=== PATIENT | male | born 1955 | race Caucasian/White ===

== ENCOUNTER 2022-03-02 18:52 | Inpatient (IN) | payer MEDICARE, BC ==
--- NOTE | 2022-03-02 18:31 | CT ---
EXAMINATION TYPE: CT abdomen pelvis wo con CT DLP: 826.1 mGycm, Automated exposure control for dose reduction was used. DATE OF EXAM: 03/02/2022 5:43 PM COMPARISON: 02/17/2016 CLINICAL INDICATION:Male, 67 years old with history of R10.32 LLQ pain; LLQ pain Since Tuesday with Di arrhea TECHNIQUE: Axial CT of the abdomen and pelvis. Sagittal and coronal reformats were created on a autoGraph workstation. Contrast used: None Oral contrast used: without Oral Contrast FINDINGS: LOWER CHEST: Unremarkable ABDOMEN LIVER: Diffusely hypoattenuating parenchyma. GALLBLADDER AND BILE DUCTS: Unremarkable. PANCREAS: Unremarkable. SPLEEN: Unremarkable. ADRENAL GLANDS: Unremarkable. KIDNEYS AND URETERS: No evidence of hydronephrosis or renal calculus. The ureters are unremarkable. PELVIS BLADDER: Unremarkable REPRODUCTIVE: Unremarkable. ABDOMEN & PELVIS STOMACH AND BOWEL: Multiple loops of bowel are seen with small bowel feces which are dilated up to 3. 8 cm. There is relative nondistention of the colon and remainder of the small bowel. Transition point is felt to be in the anterior abdomen series 6 image 19. There is relatively smooth tapering at this junction. No obvious mass. No obvious wall thickening. PERITONEUM: No evidence of pneumoperitoneum or free fluid. VASCULATURE: No evidence of aortic aneurysm. MUSCULOSKELETAL: No acute osseous abnormalities, left hip arthroplasty. Hardware appears in appropria te position. LYMPH NODES: No gross evidence for lymphadenopathy. SOFT TISSUE/ABDOMINAL WALL: Unremarkable IMPRESSION: Dilation of small bowel predominantly jejunum with small bowel feces and nondistention of the distal ileum and colon concerning for small bowel obstruction. Transition point is felt to be an anterior ab domen series 6 image 18 with somewhat smooth tapering. Small bowel follow-through recommended to rule out obstruction.
[2022-03-02] MEDS ORDERED: SODIUM CHLORIDE 0.9% 1,000 ML IV STA (19:50)
--- NOTE | 2022-03-02 20:39 | ED ---
General Adult HPI - General Chief complaint: Abdominal Pain Stated complaint: abnormal CT-bowel obstruction Time Seen by Provider: 03/02/22 19:50 Source: patient Mode of arrival: ambulatory Limitations: no limitations - History of Present Illness Initial comments: Dictation was produced using [id number] dictation software. please excuse any grammatical, word or spelling errors. Chief Complaint: 67-year-old male presents with abnormal outpatient CT History of Present Illness: Is a 67-year-old male with past medical history of hernia repair and joint replacement. Patient states that he went to his primary care doctor's for poor appetite, abdominal pain for 4-5 days. He had a computed tomography scan ordered by mid-level provider's primary care physician's office. CT was abnormal showing signs of a small bowel obstruction. Sent to the emergency department. Patient states that he has not been eating or drinking. He hasn't been thrown up recently but has been passing gas and having bowel movements. The ROS documented in this emergency department record has been reviewed and confirmed by me. Those systems with pertinent positive or negative responses have been documented in the HPI. All other systems are other negative and/or noncontributory. PHYSICAL EXAM: General Impression: Alert and oriented x3, not in acute distress HEENT: Normocephalic atraumatic, extra-ocular movements intact, pupils equal and reactive to light bilaterally, mucous membranes moist. Cardiovascular: Heart regular rate and rhythm Chest: Able to complete full sentences, no retractions, no tachypnea Abdomen: Tympanitic to percussion, minimal palpatory tenderness diffusely. Musculoskeletal: Pulses present and equal in all extremities, no peripheral edema Motor: no focal deficits noted Neurological: CN II-XII grossly intact, no focal motor or sensory deficits noted Skin: Intact with no visualized rashes Psych: Normal affect and mood ED course: 67-year-old male presents emergency Department with abnormal outpatient CT. Outpatient CT showed small bowel obstruction. vital signs upon arrival are within acceptable limits. The patient does not appear to be in significant distress at the bedside. Laboratory evaluation obtained. CBC, coag panel, metabolic panel is unremarkable. EKG interpretation: Ventricular rate 73, sinus rhythm,. Interval 150, care is 85, QTc 4:30. No [place] prolongation, no QTC prolongation, no ST or T-wave changes noted. Overall, this EKG is unremarkable [facility] with consultation to general surgery. - Related Data Home Medications Medication Instructions Recorded Confirmed Aspirin [Adult Low Dose Aspirin EC] 81 mg PO DAILY 03/30/16 03/02/22 Latanoprost Ophth [Xalatan 0.005%] 1 drop LEFT EYE HS 03/30/16 03/02/22 Timolol 0.5% Ophth Soln [Timoptic 1 drop LEFT EYE BID 03/30/16 03/02/22 0.5% Ophth Soln] Allergies Allergy/AdvReac Type Severity Reaction Status Date / Time No Known Allergies Allergy Verified 03/02/22 21:29 Review of Systems ROS Statement: Those systems with pertinent positive or pertinent negative responses have been documented in the HPI. ROS Other: All systems not noted in ROS Statement are negative. Past Medical History History of Any Multi-Drug Resistant Organisms: None Reported Past Surgical History: Hernia Repair, Joint Replacement Past Psychological History: No Psychological Hx Reported Smoking Status: Never smoker Past Alcohol Use History: Daily Past Drug Use History: None Reported General Exam Limitations: no limitations Course Vital Signs 03/02/22 19:14 Temperature 98.9 F Pulse Rate 82 Respiratory 18 Rate Blood Pressure 155/97 O2 Sat by Pulse 97 Oximetry Medical Decision Making - Lab Data Result diagrams: 03/02/22 20:29 03/02/22 20:29 Lab Results 03/02/22 03/02/22 03/02/22 Range/Units 20:29 20:29 20:29 WBC 6.0 (3.8-10.6) k/uL RBC 4.38 (4.30-5.90) m/uL Hgb 14.6 (13.0-17.5) gm/dL Hct 42.1 (39.0-53.0) % MCV 96.1 (80.0-100.0) fL MCH 33.4 (25.0-35.0) pg MCHC 34.7 (31.0-37.0) g/dL RDW 12.3 (11.5-15.5) % Plt Count 301 (150-450) k/uL MPV 7.5 PT 10.9 (9.0-12.0) sec INR 1.0 (<1.2) APTT 23.2 (22.0-30.0) sec Sodium 138 (137-145) mmol/L Potassium 3.7 (3.5-5.1) mmol/L Chloride 100 (98-107) mmol/L Carbon Dioxide 22 (22-30) mmol/L Anion Gap 16 mmol/L BUN 25 H (9-20) mg/dL Creatinine 1.08 (0.66-1.25) mg/dL Est GFR (CKD-EPI)AfAm 82 (>60 ml/min/1.73 sqM) Est GFR (CKD-EPI)NonAf 71 (>60 ml/min/1.73 sqM) Glucose 100 H (74-99) mg/dL Calcium 8.9 (8.4-10.2) mg/dL Total Bilirubin 0.7 (0.2-1.3) mg/dL AST 51 (17-59) U/L ALT 61 H (4-49) U/L Alkaline Phosphatase 96 (38-126) U/L Total Protein 7.6 (6.3-8.2) g/dL Albumin 4.6 (3.5-5.0) g/dL Lipase 126 (23-300) U/L Disposition Clinical Impression: Small bowel obstruction Disposition: ADMITTED IP TO THIS [facility] Condition: Fair Decision Time: 22:22
[2022-03-02 20:51] LABS: Albumin 4.6 g/dL (3.5-5.0); Calcium 8.9 mg/dL (8.4-10.2); Potassium 3.7 mmol/L (3.5-5.1); Total Bilirubin 0.7 mg/dL (0.2-1.3); Total Protein 7.6 g/dL (6.3-8.2)
[2022-03-02 21:10] LABS: Partial Thromboplastin Time 23.2 sec (22.0-30.0); Prothrombin Time 10.9 sec (9.0-12.0)
[2022-03-02] MEDS ORDERED: NALOXONE 0.4 MG/ML 1 ML VIAL IV PRN (21:10)
[2022-03-02] MEDS ORDERED: ONDANSETRON 4 MG/2 ML VIAL IVP STA (21:11)
[2022-03-02 21:21] LABS: HCT 42.1 % (39.0-53.0); HGB 14.6 gm/dL (13.0-17.5); MCH 33.4 pg (25.0-35.0); MCHC 34.7 g/dL (31.0-37.0); MCV 96.1 fL (80.0-100.0); Mean Platelet Volume 7.5; Platelet Count 301 k/uL (150-450); RBC 4.38 m/uL (4.30-5.90); RDW 12.3 % (11.5-15.5)
[2022-03-02 22:24] LABS: Lymphocytes # (M) 2.22 k/uL (1.0-4.8); Monocytes # (M) 0.96 k/uL (0-1.0); Neutrophils # (M) 2.52 k/uL (1.3-7.7); Neutrophils % (M) 42 %; Nucleated Red Blood Cells 0 /100 WBC (0-0); Total Cells Counted 100
[2022-03-03] MEDS: SODIUM CHLORIDE 0.9% 1,000 ML IV SCH ×4 (04:03→20:08)
[2022-03-03] MEDS ORDERED: ONDANSETRON 4 MG/2 ML VIAL IVP PRN (04:28)
--- NOTE | 2022-03-03 04:40 | P.HPIM ---
History of Present Illness H&P Date: 03/02/22 Chief Complaint: abd pain 67 year old male presented from PCP office for abnormal CT abd findings suggestive of possible SBO patient reports GI symptoms since tuesday (4-5 days ago ) all started on his hunting trip after he ate some Anchovy that later appeared to be since 2015 . he started havig nausea and vomiting and not tolerating any PO intake . associated with severe diffused abd pain colicky in nature 02/08 in severity , he had no bowel movements initially on tuesday and tuesday, then started having diarrhea over past 2 days. denies any GI bleeding , but reports possible dark stools. he denies any fever, chills, URI symptoms , denies any changes in his urinary habits, denies any GI bleeding he has not tolerated PO intake since Tuesday . upon arrival , blood work unremarkable overall, CT abd showed possible SBO ve ileus none of his friends on the hunting trip who shared food with him are suffering any of his symptoms denies any smoking , illicit drugs or alcohol Review of Systems Pertinent positives as noted in HPI. All other systems were reviewed and are negative Past Medical History History of Any Multi-Drug Resistant Organisms: None Reported Past Surgical History: Hernia Repair, Joint Replacement Past Psychological History: No Psychological Hx Reported Smoking Status: Never smoker Past Alcohol Use History: Daily Past Drug Use History: None Reported - Past Family History Father Additional Family Medical History / Comment(s): father of bladder cancer Mother Additional Family Medical History / Comment(s): of influenza in her 50s Medications and Allergies Home Medications Medication Instructions Recorded Confirmed Type Aspirin [Adult Low Dose Aspirin EC] 81 mg PO DAILY 03/30/16 03/02/22 History Latanoprost Ophth [Xalatan 0.005%] 1 drop LEFT EYE HS 03/30/16 03/02/22 History Timolol 0.5% Ophth Soln [Timoptic 1 drop LEFT EYE BID 03/30/16 03/02/22 History 0.5% Ophth Soln] Allergies Allergy/AdvReac Type Severity Reaction Status Date / Time No Known Allergies Allergy Verified 03/02/22 21:29 Physical Exam Vitals: Vital Signs Temp Pulse Resp BP Pulse Ox 03/02/22 19:14 98.9 F 82 18 155/97 97 Intake and Output 03/02/22 03/02/2203/02/22 06:59 14:59 22:59 Other: Weight 93.44 kg Constitutional: No acute distress, conversant, pleasant Eyes: Anicteric sclerae, moist conjunctiva, Pupils equal round reactive to light ENMT: NC/AT Oropharynx clear, no erythema, or exudates Neck: Supple, no masses, or JVD No carotid bruits No thyromegaly Lungs: Clear to auscultation Clear to percussion Normal respiratory effort, no accessory muscle use Cardiovascular: Heart regular in rate and rhythm, No murmurs, gallops, or rubs No peripheral edema Abdominal: mild to mod distention , increase tympanic note of percussion Nontender, no guarding, rebound or rigidity Abdomen moving with respiration Normoactive bowel sounds No hepatomegaly, No splenomegaly No palpable mass No abdominal wall hernia noted Skin: Normal temperature, tone, texture, turgor No induration No subcutaneous nodules No rash, lesions No ulcers Extremities: No digital cyanosis No clubbing Pedal pulses intact and symmetrical Radial pulses intact and symmetrical No calf tenderness Psychiatric: Alert and oriented to person, place and time Appropriate affect fair judgement Neuro Muscles Strength 5/5 in all 4 extremities Sensation to light touch grossly present throughout Cranial nerves II-XII grossly intact Lymphatics: no palpable cervical or supraclavicular lymph nodes Results CBC & Chem 7: 03/02/22 20:29 03/02/22 20:29 Labs: Abnormal Lab Results - Last 24 Hours (Table) 03/02/22 Range/Units 20:29 BUN 25 H (9-20) mg/dL Glucose 100 H (74-99) mg/dL ALT 61 H (4-49) U/L Assessment and Plan Assessment: acute gastroenteritis , rule out SBO supportive care IVF hydration with normal saline zofran PRN for nausea vomiting CT abd reviewed possible SBO vs ileus general surgery consult monitor vital signs NPO pain control with opiates full code DVT PPX heparin sc tid
[2022-03-03] MEDS: HEPARIN SODIUM,PORCINE/PF 5,000 UNIT/0.5 ML SYRINGE SQ SCH ×3 (10:05→23:30)
[2022-03-03] MEDS: PANTOPRAZOLE 40 MG TABLET PO SCH (10:05)
[2022-03-03] MEDS: IOPAMIDOL CONTRAST (ORAL USE) VIAL PO PRN ×2 (10:49→11:33)
--- NOTE | 2022-03-03 12:50 | CT ---
EXAMINATION TYPE: CT abdomen pelvis wo con DATE OF EXAM: 03/03/2022 COMPARISON: 03/02/2022 HISTORY: Abdominal pain. CT DLP: 1136 mGycm Examination of the solid and hollow viscera is limited given the lack of contrast. FINDINGS: LUNG BASES: No evidence for nodule. No evidence for infiltrate. LIVER/GB: The gallbladder is unremarkable. No space-occupying hepatic lesion. PANCREAS: No pancreatic mass identified. No inflammatory process seen. SPLEEN: No evidence for splenomegaly. No intrasplenic lesions seen. ADRENALS: No adrenal nodules identified. No evidence for thickening. KIDNEYS: No evidence for renal mass. No nephrolithiasis. No hydronephrosis. BOWEL: Dilated small bowel measuring up to 4.2 cm with right lower quadrant transition noted. There i s no contrast seen within the mid to distal small bowel or the colon. I cannot exclude early complete small bowel obstruction. No evidence for free air or abscess. Lymph nodes: No evidence for adenopathy greater than 1 cm. Abdominal aorta: Atheromatous changes seen. No evidence for aneurysm. Genital organs: No significant abnormality. Other: No significant abnormality. IMPRESSION: 1. Suspect distal small bowel obstruction mid to distal small bowel with transition zone suggested wi thin the right lower quadrant. No contrast within the distal small bowel loops or within the colon.
--- NOTE | 2022-03-03 13:34 | P.GSCN ---
History of Present Illness Consult date: 03/03/22 History of present illness: CHIEF COMPLAINT: Abdominal pain HISTORY OF PRESENT ILLNESS: This is a 67-year-old male with a known history of umbilical hernia repair with mesh and appendectomy. Patient reports he started to have increased abdominal pain and distention on Tuesday. He reports that he also started to vomit. He took Pepto-Bismol on Tuesday without much improvement. He also had been having diarrhea. The diarrhea and flatus stopped on Tuesday. Patient reports that he started vomiting again. He reports today that he did have a formed stool with flatus. His abdominal distention and pain have improved. And he is no longer having vomiting or nausea. Patient reports decrease in appetite. He denies any fever chills sweats sweats. Denies any prior history of small bowel obstruction. He did have a computed tomography scan completed that had shown evidence of small bowel obstruction with a transition point in the anterior abdomen. Surgical service consulted for small bowel obstruction. He denies any cardiac history. Patient seen and examined with Dr. casanova PAST MEDICAL HISTORY: See below PAST SURGICAL HISTORY: See below MEDICATIONS: See below ALLERGIES: See below SOCIAL HISTORY: No illicit drug use. He does drink alcohol daily, 1-3 beers daily. REVIEW OF SYSTEMS: CONSTITUTIONAL: Denies fever or chills. HEENT: Denies blurred vision, vision changes, or eye pain. Denies hemoptysis CARDIOVASCULAR: Denies chest pain or pressure. RESPIRATORY: No shortness of breath. GASTROINTESTINAL: See HPI for pertinent findings HEMATOLOGIC: Denies bleeding disorders. GENITOURINARY: Denies any blood in urine or increased urinary frequency. SKIN: Denies pruitis. Denies rash. PHYSICAL EXAM: VITAL SIGNS: Reviewed GENERAL: Well-developed in no acute distress. HEENT: No sclera icterus. Extraocular movements grossly intact. Moist buccal mucosa. Head is atraumatic, normocephalic. No nasal drainage. ABDOMEN: Soft. Obese. Mildly distended nontender NEUROLOGIC: Alert and oriented. Cranial nerves II through XII grossly intact. LABORATORY DATA: WBC is 6.0 Hgb 14.6 platelets 301 INR 1.0 Sodium 138 potassium 3.7 BUN 25 creatinine 1.08 Total bili 0.7 AST 51 ALT 61 alk phos 96 lipase 126 IMAGING: Computed tomography scan abdomen and pelvis with IV contrast. Dilation of small bowel. Only jejunum with small bowel feces and not distention of the distal ileum and colon concerning for small bowel obstruction. Transition point is felt to be in the anterior abdomen with somewhat smooth tapering. ASSESSMENT: 1. Small bowel obstruction PLAN: -Computed tomography scan of abdomen and pelvis with oral contrast ordered for further evaluation of small bowel obstruction -Keep patient nothing by mouth until CAT scan results reviewed -Continue IV fluids -Continue supportive care -Encourage patient to ambulate Thank you for this consultation Physician [employer] note has been reviewed by physician. Signing provider agrees with the documented findings, assessment, and plan of care. Past Medical History History of Any Multi-Drug Resistant Organisms: None Reported Past Surgical History: Hernia Repair, Joint Replacement Additional Past Surgical History / Comment(s): Left hip replaced 2011, revision 2012; childhood tonsils and appendix Past Psychological History: No Psychological Hx Reported Smoking Status: Never smoker Past Alcohol Use History: Daily Past Drug Use History: None Reported - Past Family History Father Additional Family Medical History / Comment(s): father of bladder cancer Mother Additional Family Medical History / Comment(s): of influenza in her 50s Medications and Allergies Home Medications Medication Instructions Recorded Confirmed Type Aspirin [Adult Low Dose Aspirin EC] 81 mg PO DAILY 03/30/16 03/02/22 History Latanoprost Ophth [Xalatan 0.005%] 1 drop LEFT EYE HS 03/30/16 03/02/22 History Timolol 0.5% Ophth Soln [Timoptic 1 drop LEFT EYE BID 03/30/16 03/02/22 History 0.5% Ophth Soln] Allergies Allergy/AdvReac Type Severity Reaction Status Date / Time No Known Allergies Allergy Verified 03/02/22 21:29 Surgical - Exam Vital Signs Temp Pulse Resp BP Pulse Ox 98.9 F 82 18 155/97 97 03/02/22 19:14 03/02/22 19:14 03/02/22 19:14 03/02/22 19:14 03/02/22 19:14 Results - Labs 03/02/22 20:29 03/02/22 20:29 Abnormal Lab Results - Last 24 Hours (Table) 03/02/22 Range/Units 20:29 BUN 25 H (9-20) mg/dL Glucose 100 H (74-99) mg/dL ALT 61 H (4-49) U/L Diabetes panel 03/02/22 Range/Units 20:29 Sodium 138 (137-145) mmol/L Potassium 3.7 (3.5-5.1) mmol/L Chloride 100 (98-107) mmol/L Carbon Dioxide 22 (22-30) mmol/L BUN 25 H (9-20) mg/dL Creatinine 1.08 (0.66-1.25) mg/dL Glucose 100 H (74-99) mg/dL Calcium 8.9 (8.4-10.2) mg/dL AST 51 (17-59) U/L ALT 61 H (4-49) U/L Alkaline Phosphatase 96 (38-126) U/L Total Protein 7.6 (6.3-8.2) g/dL Albumin 4.6 (3.5-5.0) g/dL Calcium panel 03/02/22 Range/Units 20:29 Calcium 8.9 (8.4-10.2) mg/dL Albumin 4.6 (3.5-5.0) g/dL Pituitary panel 03/02/22 Range/Units 20:29 Sodium 138 (137-145) mmol/L Potassium 3.7 (3.5-5.1) mmol/L Chloride 100 (98-107) mmol/L Carbon Dioxide 22 (22-30) mmol/L BUN 25 H (9-20) mg/dL Creatinine 1.08 (0.66-1.25) mg/dL Glucose 100 H (74-99) mg/dL Calcium 8.9 (8.4-10.2) mg/dL Adrenal panel 03/02/22 Range/Units 20:29 Sodium 138 (137-145) mmol/L Potassium 3.7 (3.5-5.1) mmol/L Chloride 100 (98-107) mmol/L Carbon Dioxide 22 (22-30) mmol/L BUN 25 H (9-20) mg/dL Creatinine 1.08 (0.66-1.25) mg/dL Glucose 100 H (74-99) mg/dL Calcium 8.9 (8.4-10.2) mg/dL Total Bilirubin 0.7 (0.2-1.3) mg/dL AST 51 (17-59) U/L ALT 61 H (4-49) U/L Alkaline Phosphatase 96 (38-126) U/L Total Protein 7.6 (6.3-8.2) g/dL Albumin 4.6 (3.5-5.0) g/dL
--- NOTE | 2022-03-03 16:24 | P.PN ---
Subjective Progress Note Date: 03/03/22 Hospital course: Patient is a very pleasant 67-year-old male with a past medical history of umbilical hernia with mesh repair and appendectomy. He presented to the emergency department with a chief complaint of abdominal pain and distention accompanied by nausea and vomiting. He underwent full evaluation in the emergency department. CT abdomen and pelvis without contrast revealed dilation of small bowel predominantly to GEN him with small bowel cc an nondistention of the distal ileum and colon concerning for small bowel obstruction at the transition point. CBC, coags, and CMP completed showing no significant abnormalities. Patient was admitted under the services with consultation to general surgery. CT abdomen and pelvis with oral contrast for small bowel follow-through was then completed revealing distal small bowel obstruction mid to distal small bowel with transition zone suggested within the right lower quadrant Physical exam: Patient seen and fully evaluated at the bedside this morning. Patient reports continued diffuse abdominal pain/discomfort and bloating. He denies any further episodes of nausea or vomiting. Patient reports he has been passing flatus. Vital signs reviewed and stable. General: Nontoxic, no distress and appears stated age. Derm: Skin warm and dry, normal coloration for ethnicity. Head: Atraumatic, normocephalic and symmetric. Eyes: EOMs intact, no lid lag, and anicteric sclera Mouth: no lip lesions, mucus membranes moist Cardiovascular: regular rate and rhythm with normal S1S2, no murmur, positive posterior tibial pulses bilaterally, and cap refill < 2 seconds. Lungs: Respirations even, regular, and unlabored on room air. Lungs CTA bilaterally, no rhonchi, no rales, no wheezing, and no accessory muscle usage. Abdominal Taught distended with diffuse tenderness upon palpation. No guarding, no appreciable organomegaly Ext: ROM intact. No gross muscle atrophy, no edema, no contractures Neuro: Speech clear, face symmetrical and CN II-XII grossly intact with no noted focal neuro deficits Psych: Alert and oriented to person, place, time, and situation. Appropriate and pleasant affect. Assessment and Plan of Care: Small bowel obstruction -Gen. surgery following, appreciate further recommendations -Maintain NPO status, diet to be progressed only as recommended by general surgery team. -Continue with IV fluid hydration -Symptomatic care and pain management with Zofran as needed for nausea/vomiting and morphine as needed for pain/discomfort. -GI prophylaxis with Protonix -Encourage ambulation -Patient may require NG tube if nausea and vomiting returns CODE STATUS: Full code DVT prophylaxis: Heparin Discussed with: Patient and RN Anticipated discharge date: Clinical course to determine Anticipated discharge place: Home A total of 33 minutes was spent on the care of this complex patient more than 50% of the time was spent in counseling and care coordination. Objective - Vital Signs Vital signs: Vital Signs Temp 97.6 F 03/03/22 11: Pulse 65 03/03/22 11:22 Resp 16 03/03/22 11:22 BP 154/78 03/03/22 11:22 Pulse Ox 99 03/03/22 11:22 FiO2 Intake & Output 03/02/22 03/03/22 03/03/22 18:59 06:59 18:59 Weight 93.44 kg Other: # Voids 1 - Labs CBC & Chem 7: 03/02/22 20:29 03/02/22 20:29 Labs: Abnormal Lab Results - Last 24 Hours (Table) 03/02/22 Range/Units 20:29 BUN 25 H (9-20) mg/dL Glucose 100 H (74-99) mg/dL ALT 61 H (4-49) U/L
[2022-03-03] MEDS: LATANOPROST 0.005% OPHTH DROPS 2.5 ML BTL LEFT EYE SCH (21:00)
[2022-03-03] MEDS: TIMOLOL 0.5% OPHTH DROPS 5 ML BTL LEFT EYE SCH (21:00)
[2022-03-04] MEDS: SODIUM CHLORIDE 0.9% 1,000 ML IV SCH ×3 (03:42→17:15)
[2022-03-04] MEDS: PANTOPRAZOLE 40 MG TABLET PO SCH (08:17)
[2022-03-04] MEDS: TIMOLOL 0.5% OPHTH DROPS 5 ML BTL LEFT EYE SCH ×2 (08:18→21:00)
[2022-03-04] MEDS: HEPARIN SODIUM,PORCINE/PF 5,000 UNIT/0.5 ML SYRINGE SQ SCH ×2 (08:41→16:16)
[2022-03-04 09:12] LABS: HCT 35.8 % (39.6-50.0); HGB 11.9 g/dL (13.0-17.0); MCH 33.1 pg (27.0-32.0); MCHC 33.2 g/dL (32.0-37.0); MCV 99.7 fL (80.0-97.0); Mean Platelet Volume 8.8 fL (9.5-12.2); NRBC Per 100 WBC 0 /100 WBCS (0.0-0.0); Platelet Count 259 X 10*3/uL (140-440); RBC 3.59 X 10*6/uL (4.40-5.60); RDW 11.9 % (11.5-14.5); WBC 6.97 X 10*3/uL (4.50-10.00)
[2022-03-04 09:18] LABS: African American GFR (CKD) 96.5 (60.0-200.0); Albumin 3.7 g/dL (3.8-4.9); Albumin/Globulin Ratio 1.61 (1.60-3.17); Anion Gap 11.8 mmol/L (10.00-18.00); BUN/Creat Ratio 12.03 Ratio (12.00-20.00); Blood Urea Nitrogen 11.4 mg/dL (9.0-27.0); Calcium 8.4 mg/dL (8.7-10.3); Carbon Dioxide 22.1 mmol/L (20.0-27.5); Globulin 2.3 g/dL (1.6-3.3); Magnesium 2.1 mg/dL (1.5-2.4); Non-African American GFR(CKD) 83.3 (60.0-200.0); Potassium 3.9 mmol/L (3.5-5.5); Total Bilirubin 0.3 mg/dL (0.30-1.20)
--- NOTE | 2022-03-04 10:23 | P.PN ---
Subjective Progress Note Date: 03/04/22 Hospital course: Patient is a very pleasant 67-year-old male with a past medical history of umbilical hernia with mesh repair and appendectomy. He presented to the emergency department with a chief complaint of abdominal pain and distention accompanied by nausea and vomiting. He underwent full evaluation in the emergency department. CT abdomen and pelvis without contrast revealed dilation of small bowel predominantly to GEN him with small bowel cc an nondistention of the distal ileum and colon concerning for small bowel obstruction at the transition point. CBC, coags, and CMP completed showing no significant abnormalities. Patient was admitted under the services with consultation to general surgery. CT abdomen and pelvis with oral contrast for small bowel follow-through was then completed revealing distal small bowel obstruction mid to distal small bowel with transition zone suggested within the right lower quadrant Physical examination: Patient seen and fully evaluated at bedside this morning. Patient appears to be doing well. Patient reports passing a lot of flatus and states he has had for small bowel episodes of diarrhea overnight. Patient reports improvement of abdominal pain but states he remains feeling very distended and bloated throughout entire abdomen and very "gassy". Patient denies any episodes of nausea or vomiting or any other complaints at this time. We will obtain an abdominal x-ray to follow up on progression of small bowel obstruction, general surgery following. Vital signs reviewed and stable. General: Nontoxic, no distress and appears stated age. Derm: Skin warm and dry, normal coloration for ethnicity. Head: Atraumatic, normocephalic and symmetric. Eyes: EOMs intact, no lid lag, and anicteric sclera Mouth: no lip lesions, mucus membranes moist Cardiovascular: regular rate and rhythm with normal S1S2, no murmur, positive posterior tibial pulses bilaterally, and cap refill < 2 seconds. Lungs: Respirations even, regular, and unlabored on room air. Lungs CTA bilaterally, no rhonchi, no rales, no wheezing, and no accessory muscle usage. Abdominal Taught distended with diffuse tenderness upon palpation. No guarding, no appreciable organomegaly Ext: ROM intact. No gross muscle atrophy, no edema, no contractures Neuro: Speech clear, face symmetrical and CN II-XII grossly intact with no noted focal neuro deficits Psych: Alert and oriented to person, place, time, and situation. Appropriate and pleasant affect. Assessment and Plan of Care: Small bowel obstruction -Gen. surgery following, appreciate further recommendations -Maintain NPO status, diet to be progressed only as recommended by general surg marisabel team. -Continue with IV fluid hydration -Symptomatic care and pain management with Zofran as needed for nausea/vomiting and morphine as needed for pain/discomfort. -GI prophylaxis with Protonix -Encourage ambulation -Patient may require NG tube if nausea and vomiting returns -X-ray abdomen to follow up on progression of SBO CODE STATUS: Full code DVT prophylaxis: Heparin Discussed with: Patient and RN Anticipated discharge date: Clinical course to determine Anticipated discharge place: Home A total of 31 minutes was spent on the care of this complex patient more than 50% of the time was spent in counseling and care coordination. I reviewed the documentation as provided by the NOA above, who is the original author of this note. I agree with the documented assessment and plan, with the following changes: none Objective - Vital Signs Vital signs: Vital Signs Temp 97.9 F 03/04/22 03:37 Pulse 61 03/04/22 03:37 Resp 16 03/04/22 03:37 BP 134/77 03/04/22 03:37 Pulse Ox 98 03/04/22 03:37 FiO2 Intake & Output 03/03/22 03/04/22 03/04/22 18:59 06:59 18:59 Intake Total 1200 1500 Balance 1200 1500 Intake: Intake, IV Titration 1200 1500 Amount Sodium Chloride 0.9% 1, 1200 1500 000 ml @ 130 mls/hr IV . Q7H42M [facility] Rx#:[id number] Other: Voiding Method Toilet # Voids 3 # Bowel Movements 2 - Labs CBC & Chem 7: 03/05/22 09:11 03/05/22 09:11
--- NOTE | 2022-03-04 10:45 | XR ---
EXAMINATION TYPE: XR abdomen 2V DATE OF EXAM: 03/04/2022 CLINICAL DATA: 67-year-old male follow-up small bowel obstruction, [facility] COMPARISON: CT 03/03/2022 FINDINGS: Oral contrast has progressed throughout the collapsed colon distally to the rectum. Persist ent dilated small bowel loops in the left side of the abdomen measuring up to 4.4 cm. This is in comp arison to 4.8 cm on the prior CT. No evidence for free intraperitoneal air. Pelvic phleboliths. Parti ally visualized left total hip arthroplasty. Moderate degenerative change right hip. IMPRESSION: 1. Oral contrast has progressed into the colon. 2. The colon remains collapsed and there are persistent dilated small bowel loops in the left side of the abdomen measuring up to 4.4 cm. This is slightly improved compared to 4.[address] Residu al incomplete small bowel obstruction not excluded at this time.
[2022-03-04] MEDS ORDERED: IV FLUID CONTINUATION 900 ML IV ONE (12:00)
[2022-03-04] MEDS ORDERED: LACTATED RINGERS 1,000 ML IV ONE ×3 (12:30→15:27)
[2022-03-04] MEDS ORDERED: LIDOCAINE 1% (10MG/ML) FOR IV START INTRADERMA ONE (12:30)
[2022-03-04] MEDS ORDERED: DEXAMETHASONE SOD PHOSPHATE 4 MG/ML 1 ML VIAL IV ONE (12:30)
[2022-03-04] MEDS ORDERED: ONDANSETRON 4 MG/2 ML VIAL IVP ONE (12:30)
--- NOTE | 2022-03-04 12:32 | P.PN ---
Subjective Progress Note Date: 03/04/22 CHIEF COMPLAINT: Small bowel obstruction HISTORY OF PRESENT ILLNESS: Patient reports feeling still distended he is having some mid abdominal pain. He is passing a small amount of flatus and having liquidy stools. Denies any nausea or vomiting. Computed tomography scan abdomen and pelvis with oral contrast suspected distal small bowel obstruction mid to distal small bowel with transition zone suggested within the right lower quadrant. No contrast within the distal small bowel loops or within the colon. Medicine service did order an abdominal x-ray which reported oral Contrast has progressed into the colon. The colon remains collapsed and there are persistent dilated small bowel loops in the left side of the abdomen measuring up to 4.4 cm. This is slightly improved to 4.[address]. Residual incomplete small bowel obstruction not excluded at this time. Imaging results and exam findings discussed with Dr. casanova. Patient was seen and examined by Dr. casanova PHYSICAL EXAM: VITAL SIGNS: Reviewed. GENERAL: Well-developed in no acute distress. HEENT: No sclera icterus. Extraocular movements grossly intact. Moist buccal mucosa. Head is atraumatic, normocephalic. ABDOMEN: Distended. Tenderness with palpation mid abdomen NEUROLOGIC: Alert and oriented. Cranial nerves II through XII grossly intact. ASSESSMENT: 1. Small bowel obstruction PLAN: -Patient scheduled for exploratory laparotomy with lysis of adhesions today with Dr. casanova -Keep patient nothing by mouth Physician Trackwalker note has been reviewed by physician. Signing provider agrees with the documented findings, assessment, and plan of care. Objective - Vital Signs Vital signs: Vital Signs Temp 98.1 F 03/04/22 09:30 Pulse 55 L 03/04/22 09:30 Resp 18 03/04/22 09:30 BP 126/72 03/04/22 09:30 Pulse Ox 98 03/04/22 09:30 FiO2 Intake & Output 03/03/22 03/04/22 03/04/22 18:59 06:59 18:59 Intake Total 1200 1500 Balance 1200 1500 Intake: Intake, IV Titration 1200 1500 Amount Sodium Chloride 0.9% 1, 1200 1500 000 ml @ 130 mls/hr IV . Q7H42M [facility] Rx#:[id number] Other: Voiding Method Toilet # Voids 3 # Bowel Movements 2 - Labs CBC & Chem 7: 03/04/22 05:51 03/04/22 05:51 Labs: Abnormal Lab Results - Last 24 Hours (Table) 03/04/22 03/04/22 Range/Units 05:51 05:51 RBC 3.59 L (4.40-5.60) X 10*6/uL Hgb 11.9 L (13.0-17.0) g/dL Hct 35.8 L (39.6-50.0) % MCV 99.7 H (80.0-97.0) fL MCH 33.1 H (27.0-32.0) pg MPV 8.8 L (9.5-12.2) fL Chloride 110 H (96-109) mmol/L Calcium 8.4 L (8.7-10.3) mg/dL Total Protein 6.0 L (6.2-8.2) g/dL Albumin 3.7 L (3.8-4.9) g/dL
[2022-03-04] MEDS ORDERED: NEOSTIGMINE 1 MG/ML 10 ML VIAL ONE (13:11)
[2022-03-04] MEDS ORDERED: GLYCOPYRROLATE 0.2 MG/ML 2 ML VIAL ONE (13:11)
[2022-03-04] MEDS ORDERED: MIDAZOLAM 2 MG/2 ML VIAL ONE (13:11)
[2022-03-04] MEDS ORDERED: ROCURONIUM 10 MG/ML (5 ML VIAL) IV ONE (13:11)
[2022-03-04] MEDS ORDERED: SUCCINYLCHOLINE CHLORIDE 200 MG/10 ML VIAL IV ONE (13:11)
[2022-03-04] MEDS ORDERED: fentaNYL (PF) 50 MCG/ML 2 ML AMP ONE (13:11)
[2022-03-04] MEDS ORDERED: LIDOCAINE 2% INJ 20 MG/ML (2 ML VIAL) ONE (13:11)
[2022-03-04] MEDS ORDERED: PROPOFOL 10 MG/ML 20 ML VIAL IV ONE (13:11)
[2022-03-04] MEDS ORDERED: SODIUM CHLORIDE 0.9% 100 ML with ceFAZolin 2,000 MG IV ONE ×2 (13:15)
[2022-03-04] MEDS ORDERED: HYDROcodone/APAP 5-325MG 1 EACH TAB PO PRN (14:20)
[2022-03-04] MEDS ORDERED: NALOXONE 0.4 MG/ML 1 ML VIAL IV PRN (14:20)
[2022-03-04] MEDS ORDERED: ACETAMINOPHEN TAB 325 MG TAB PO PRN (14:20)
[2022-03-04] MEDS ORDERED: HYDROmorphone 1 MG/ML 1 ML SYRINGE IVP PRN (14:20)
--- NOTE | 2022-03-04 14:20 | P.OP ---
Date of Procedure: 03/04/22 Preoperative Diagnosis: High-grade small bowel obstruction Postoperative Diagnosis: High-grade small bowel obstruction secondary to small bowel adhesions to and abdominal mesh with small bowel volvulus Procedure(s) Performed: Exploratory laparotomy lysis of adhesions Small bowel resection Anesthesia: LINDA Surgeon: Carlos Hernandez Estimated Blood Loss (ml): 25 Pathology: other (Small bowel) Condition: stable Disposition: PACU Description of Procedure: Patient's placed on the operative table in the supine position. He received general endotracheal tube anesthesia. His abdomen was prepped and draped usual sterile fashion. The skin was incised in midline in the periumbilical area. There was a piece of mesh that was found below the fascia. The incision was extended cephalad. The small bowel was densely adhered to the mesh. There was evidence of a high-grade small bowel obstruction related to adhesions to the mesh and the volvulus of the small bowel. The small bowel was dissected off the mesh. After the dissection was decided perform a small bowel resection. The bowel was transected approximately distally with the JOSÉ MIGUEL stapler and then using the Enseal device mesentery the bowel was divided. A [id number] functional end-to-end staple anastomosis created using JOSÉ MIGUEL and TA stapler. 3-0 GI silk sutures using a crotch stitch. The small bowel was then run proximally and distally from this area. There is no obstruction seen from the ligament of Treitz to the level of the ileocecal valve. The abdomen was irrigated there is no bleeding seen. The fascia was closed with looped #1 PDS suture. Skin was closed tonie. Patient top she will sent to recovery in stable condition.
[2022-03-04] MEDS ORDERED: HYDROmorphone 0.5 MG/0.5 ML SYRINGE IVP ONE ×2 (15:11→15:21)
[2022-03-04] MEDS: KETOROLAC 15 MG/ML 1 ML VIAL IVP SCH (17:12)
[2022-03-04] MEDS: MORPHINE SULFATE 2 MG/ML SYRINGE IVP PRN (21:00)
[2022-03-04] MEDS: LATANOPROST 0.005% OPHTH DROPS 2.5 ML BTL LEFT EYE SCH (21:01)
[2022-03-05] MEDS: KETOROLAC 15 MG/ML 1 ML VIAL IVP SCH ×5 (00:15→23:29)
[2022-03-05] MEDS: HEPARIN SODIUM,PORCINE/PF 5,000 UNIT/0.5 ML SYRINGE SQ SCH (00:16)
[2022-03-05] MEDS: SODIUM CHLORIDE 0.9% 1,000 ML IV SCH ×3 (04:46→17:53)
[2022-03-05] MEDS: PANTOPRAZOLE 40 MG TABLET PO SCH (08:17)
[2022-03-05] MEDS: TIMOLOL 0.5% OPHTH DROPS 5 ML BTL LEFT EYE SCH ×2 (08:18→20:33)
[2022-03-05] MEDS: ENOXAPARIN 40 MG/0.4 ML SYRINGE SQ SCH (09:42)
[2022-03-05 09:48] LABS: Basophils % (A) 0 %; Eosinophils % (A) 1 %; HGB 12.9 gm/dL (13.0-17.5); Lymphocytes # (A) 1.6 k/uL (1.0-4.8); Lymphocytes % (A) 18 %; MCH 33.3 pg (25.0-35.0); MCHC 34.1 g/dL (31.0-37.0); MCV 97.7 fL (80.0-100.0); Mean Platelet Volume 7.9; Monocytes # (A) 0.5 k/uL (0-1.0); Monocytes % (A) 6 %; Neutrophils # (A) 6.6 k/uL (1.3-7.7); Neutrophils % (A) 74 %; Platelet Count 303 k/uL (150-450); RBC 3.88 m/uL (4.30-5.90); RDW 12.4 % (11.5-15.5); WBC 8.9 k/uL (3.8-10.6)
--- NOTE | 2022-03-05 09:48 | P.PN ---
Subjective Progress Note Date: 03/05/22 Hospital course: Patient is a very pleasant 67-year-old male with a past medical history of umbilical hernia with mesh repair and appendectomy. He presented to the emergency department with a chief complaint of abdominal pain and distention accompanied by nausea and vomiting. He underwent full evaluation in the emergency department. CT abdomen and pelvis without contrast revealed dilation of small bowel predominantly to GEN him with small bowel cc an nondistention of the distal ileum and colon concerning for small bowel obstruction at the transition point. CBC, coags, and CMP completed showing no significant abnormalities. Patient was admitted under the services with consultation to general surgery. CT abdomen and pelvis with oral contrast for small bowel follow-through was then completed revealing distal small bowel obstruction mid to distal small bowel with transition zone suggested within the right lower quadrant. X-ray completed 03/04/22 revealing oral contrast has progressed into the colon, however: Remained collapsed with persistent dilated small bowel loops in the left side of the abdomen measuring up to 4.4 cm showing slight improve ment compared to CT however residual incomplete small bowel obstruction was not excluded at that time. Later that afternoon on 03/04/22 patient underwent evaluation by surgery team and it was decided for patient to undergo exploratory laparotomy to evaluate for adhesions. During exploratory laparotomy, patient was found to have a high-grade small bowel obstruction secondary to small bowel adhesions with small bowel volvulus resulting in lysis of adhesions with small bowel resection. Physical examination: Patient seen and fully evaluated at bedside this morning. Patient is postoperative day 1. He appears to be doing well and was sitting up in the chair denying having any complaints at this time. Patient reports controlled postoperative pain and denies having any nausea or vomiting. Patient denies passing flatus and postoperative period. Encouraged ambulation and use of incentive spirometry. Diet to be advanced slowly as recommended by general surgery team. CBC and CMP showing no significant abnormalities. Hemoglobin stable at 12.9. Vital signs reviewed and stable. General: Nontoxic, no distress and appears stated age. Derm: Skin warm and dry, normal coloration for ethnicity. Head: Atraumatic, normocephalic and symmetric. Eyes: EOMs intact, no lid lag, and anicteric sclera Mouth: no lip lesions, mucus membranes moist Cardiovascular: regular rate and rhythm with normal S1S2, no murmur, positive posterior tibial pulses bilaterally, and cap refill < 2 seconds. Lungs: Respirations even, regular, and unlabored on room air. Lungs CTA bilaterally, no rhonchi, no rales, no wheezing, and no accessory muscle usage. Abdominal. Soft distended, nontender upon palpation, bowel sounds hypoactive. Ext: ROM intact. No gross muscle atrophy, no edema, no contractures Neuro: Speech clear, face symmetrical and CN II-XII grossly intact with no noted focal neuro deficits Psych: Alert and oriented to person, place, time, and situation. Appropriate and pleasant affect. Assessment and Plan of Care: Small bowel obstruction -Gen. surgery following, took patient for exploratory laparotomy resulting in lysis of adhesions with small bowel resection on 03/04/22 -Maintain NPO status, diet to be progressed only as recommended by general surgery team. -Continue with IV fluid hydration -Symptomatic care and pain management with Zofran as needed for nausea/vomiting and morphine as needed for pain/discomfort. -GI prophylaxis with Protonix -Encourage ambulation CODE STATUS: Full code DVT prophylaxis: Heparin Discussed with: Patient and RN Anticipated discharge date: Clinical course to determine Anticipated discharge place: Home A total of 32 minutes was spent on the care of this complex patient more than 50% of the time was spent in counseling and care coordination. I reviewed the documentation as provided by the NOA above, who is the original author of this note. I agree with the documented assessment and plan, with the following changes: none Objective - Vital Signs Vital signs: Vital Signs Temp 98.1 F 03/05/22 04:47 Pulse 63 03/05/22 04:47 Resp 16 03/05/22 04:47 BP 136/71 03/05/22 04:47 Pulse Ox 96 03/05/22 09:00 FiO2 Intake & Output 03/04/22 03/05/22 03/05/22 18:59 06:59 18:59 Intake Total 1200 2000 Output Total 275 1600 Balance 925 400 Intake: IV 1200 Intake, IV Titration 1400 Amount Sodium Chloride 0.9% 1, 1400 000 ml @ 130 mls/hr IV . Q7H42M [facility] Rx#:[id number] Oral 600 Output: Urine 250 1600 Estimated Blood Loss 25 Other: Voiding Method Indwelling Catheter # Voids 1 - Labs CBC & Chem 7: 03/05/22 09:11 03/05/22 09:11
[2022-03-05 09:58] LABS: African American GFR (CKD) >90 (>60 ml/min/1.73 sqM); Anion Gap 13 mmol/L; Blood Urea Nitrogen 14 mg/dL (9-20); Calcium 7.9 mg/dL (8.4-10.2); Carbon Dioxide 19 mmol/L (22-30); Chloride 107 mmol/L (98-107); Glucose 90 mg/dL (74-99); Non-African American GFR(CKD) 89 (>60 ml/min/1.73 sqM); Potassium 3.8 mmol/L (3.5-5.1); Sodium 139 mmol/L (137-145)
--- NOTE | 2022-03-05 12:24 | P.PN ---
Subjective Progress Note Date: 03/05/22 CHIEF COMPLAINT: Small bowel obstruction HISTORY OF PRESENT ILLNESS: Postoperative day #1 status post exploratory laparotomy, lysis of adhesions and small bowel resection for a high-grade small bowel obstruction secondary to small bowel adhesions and abdominal mesh with small bowel volvulus. Patient reports his pain is controlled. He is sitting up in the bedside chair. He denies any nausea or vomiting. Denies any flatus. Afebrile. Currently nothing by mouth. WBC is 8.9 hemoglobin 12.9 platelets 303 sodium is 139 potassium 3.8 creatinine 0.90 Patient was seen and examined by Dr. casanova PHYSICAL EXAM: VITAL SIGNS: Reviewed. GENERAL: Well-developed in no acute distress. HEENT: No sclera icterus. Extraocular movements grossly intact. Moist buccal mucosa. Head is atraumatic, normocephalic. ABDOMEN: Distended. Incisional dressing with blood saturation noted. Abdominal binder in place. NEUROLOGIC: Alert and oriented. Cranial nerves II through XII grossly intact. ASSESSMENT: 1. High-grade small bowel obstruction secondary to small bowel adhesions and abdominal mesh with small bowel volvulus status post exploratory laparotomy, lysis of adhesions and small bowel resection PLAN: -start clear liquid diet -Continue pain medication as needed -Discontinue Perales catheter -Encourage patient to ambulate -Encourage patient to use incentive spirometer -Change incisional dressing -GI prophylaxis Protonix and DVT prophylaxis Lovenox Physician Fishing Floats Assembler note has been reviewed by physician. Signing provider agrees with the documented findings, assessment, and plan of care. Objective - Vital Signs Vital signs: Vital Signs Temp 98.2 F 03/05/22 08:00 Pulse 64 03/05/22 08:00 Resp 18 03/05/22 08:00 BP 114/71 03/05/22 08:00 Pulse Ox 96 03/05/22 09:00 FiO2 Intake & Output 03/04/22 03/05/22 03/05/22 18:59 06:59 18:59 Intake Total 1200 2000 Output Total 275 1600 150 Balance 925 400 -150 Intake: IV 1200 Intake, IV Titration 1400 Amount Sodium Chloride 0.9% 1, 1400 000 ml @ 130 mls/hr IV . Q7H42M [facility] Rx#:[id number] Oral 600 Output: Urine 250 1600 150 Uretheral (Perales) 150 Estimated Blood Loss 25 Other: Voiding Method Indwelling Catheter Indwelling Catheter # Voids 1 - Labs CBC & Chem 7: 03/05/22 09:11 03/05/22 09:11 Labs: Abnormal Lab Results - Last 24 Hours (Table) 03/05/22 03/05/22 Range/Units 09:11 09:11 RBC 3.88 L (4.30-5.90) m/uL Hgb 12.9 L (13.0-17.5) gm/dL Hct 38.0 L (39.0-53.0) % Carbon Dioxide 19 L (22-30) mmol/L Calcium 7.9 L (8.4-10.2) mg/dL
[2022-03-05 12:32] VITALS: BMI 32.2
[2022-03-05] MEDS: LATANOPROST 0.005% OPHTH DROPS 2.5 ML BTL LEFT EYE SCH (20:33)
[2022-03-06] MEDS: SODIUM CHLORIDE 0.9% 1,000 ML IV SCH ×3 (02:02→16:53)
[2022-03-06] MEDS: PANTOPRAZOLE 40 MG TABLET PO SCH (09:31)
[2022-03-06] MEDS: KETOROLAC 15 MG/ML 1 ML VIAL IVP SCH ×2 (09:31→15:00)
[2022-03-06] MEDS: ENOXAPARIN 40 MG/0.4 ML SYRINGE SQ SCH (09:31)
[2022-03-06] MEDS: TIMOLOL 0.5% OPHTH DROPS 5 ML BTL LEFT EYE SCH ×2 (09:37→20:32)
--- NOTE | 2022-03-06 09:49 | P.PN ---
Subjective Progress Note Date: 03/06/22 Principal diagnosis: Small bowel obstruction Patient doing better today. He is sitting up in the chair. Pain is fairly well controlled. He did pass flatus this morning. No bowel movement. No nausea or vomiting. He feels somewhat bloated. Tolerating clear liquids thus far. Morning labs are pending. Objective - Vital Signs Vital signs: Vital Signs Temp 98 F 03/05/22 21:00 Pulse 74 03/05/22 21:00 Resp 16 03/05/22 21:00 BP 124/71 03/05/22 21:00 Pulse Ox 97 03/05/22 21:00 FiO2 Intake & Output 03/05/22 03/06/22 03/06/22 18:59 06:59 18:59 Output Total 150 400 Balance -150 -400 Weight 93.44 kg Output: Urine 150 400 Uretheral (Perales) 150 Other: Voiding Method Indwelling Catheter Toilet Urinal # Voids 2 - Exam Abdomen: Soft, mild distention, mild tenderness, dressing and placed - Labs CBC & Chem 7: 03/05/22 09:11 03/05/22 09:11 Labs: Abnormal Lab Results - Last 24 Hours (Table) 03/05/22 03/05/22 Range/Units 09:11 09:11 RBC 3.88 L (4.30-5.90) m/uL Hgb 12.9 L (13.0-17.5) gm/dL Hct 38.0 L (39.0-53.0) % Carbon Dioxide 19 L (22-30) mmol/L Calcium 7.9 L (8.4-10.2) mg/dL Assessment and Plan (1) Small bowel obstruction Narrative/Plan: 67-year-old male doing fairly well morning. Bowel function seems to be slowly returning. Continue clear liquids. Begin chewing gum. Ambulate. Current Visit: Yes Status: Acute Code(s): K56.609 - UNSP INTESTNL OBST, UNSP TO PARTIAL VERSUS COMPLETE OBST SNOMED Code(s): 868298423
--- NOTE | 2022-03-06 14:20 | P.PN ---
Subjective Progress Note Date: 03/06/22 Hospital course: Patient is a very pleasant 67-year-old male with a past medical history of umbilical hernia with mesh repair and appendectomy. He presented to the emergency department with a chief complaint of abdominal pain and distention accompanied by nausea and vomiting. He underwent full evaluation in the emergency department. CT abdomen and pelvis without contrast revealed dilation of small bowel predominantly to GEN him with small bowel cc an nondistention of the distal ileum and colon concerning for small bowel obstruction at the transition point. CBC, coags, and CMP completed showing no significant abnormalities. Patient was admitted under the services with consultation to general surgery. CT abdomen and pelvis with oral contrast for small bowel follow-through was then completed revealing distal small bowel obstruction mid to distal small bowel with transition zone suggested within the right lower quadrant. X-ray completed 03/04/22 revealing oral contrast has progressed into the colon, however: Remained collapsed with persistent dilated small bowel loops in the left side of the abdomen measuring up to 4.4 cm showing slight improve ment compared to CT however residual incomplete small bowel obstruction was not excluded at that time. Later that afternoon on 03/04/22 patient underwent evaluation by surgery team and it was decided for patient to undergo exploratory laparotomy to evaluate for adhesions. During exploratory laparotomy, patient was found to have a high-grade small bowel obstruction secondary to small bowel adhesions with small bowel volvulus resulting in lysis of adhesions with small bowel resection. Physical examination: Patient seen and fully evaluated at bedside this morning. Patient is postoperative day 2. He continues to be doing well. He reports he is passing flatus and tolerating oral intake of clear fluids with no episodes of nausea or vomiting. Patient does report continued distention of abdomen and mild pain. Patient has been ambulating in room and oscar without any difficulties. Patient was evaluated by general surgery this morning recommending continued clear liquid diet for an additional 24 hours and likely advance tomorrow. Morning labs pending at this time. Vital signs reviewed and stable. General: Nontoxic, no distress and appears stated age. Derm: Skin warm and dry, normal coloration for ethnicity. Head: Atraumatic, normocephalic and symmetric. Eyes: EOMs intact, no lid lag, and anicteric sclera Mouth: no lip lesions, mucus membranes moist Cardiovascular: regular rate and rhythm with normal S1S2, no murmur, positive posterior tibial pulses bilaterally, and cap refill < 2 seconds. Lungs: Respirations even, regular, and unlabored on room air. Lungs CTA bilaterally, no rhonchi, no rales, no wheezing, and no accessory muscle usage. Abdominal. Taut distended, mild tenderness, bowel sounds present. Ext: ROM intact. No gross muscle atrophy, no edema, no contractures Neuro: Speech clear, face symmetrical and CN II-XII grossly intact with no noted focal neuro deficits Psych: Alert and oriented to person, place, time, and situation. Appropriate and pleasant affect. Assessment and Plan of Care: Small bowel obstruction -Gen. surgery following, took patient for exploratory laparotomy resulting in lysis of adhesions with small bowel resection on 03/04/22 -Maintain NPO status, diet to be progressed only as recommended by general surgery team. -Continue with IV fluid hydration -Symptomatic care and pain management with Zofran as needed for nausea/vomiting and morphine as needed for pain/discomfort. -GI prophylaxis with Protonix -Encourage ambulation Acute postoperative blood loss anemia -Hemoglobin initially 14.6 decreasing down to 11.9. -Currently Hemoglobin stable, we will continue to monitor with repeat a.m. labs. CODE STATUS: Full code DVT prophylaxis: Heparin Discussed with: Patient and RN Anticipated discharge date: Clinical course to determine Anticipated discharge place: Home A total of 33 minutes was spent on the care of this complex patient more than 50% of the time was spent in counseling and care coordination. Objective - Vital Signs Vital signs: Vital Signs Temp 98 F 03/05/22 21:00 Pulse 74 03/05/22 21:00 Resp 16 03/05/22 21:00 BP 124/71 03/05/22 21:00 Pulse Ox 97 03/05/22 21:00 FiO2 Intake & Output 03/05/22 03/06/22 03/06/22 18:59 06:59 18:59 Output Total 150 400 Balance -150 -400 Weight 93.44 kg Output: Urine 150 400 Uretheral (Perales) 150 Other: Voiding Method Indwelling Catheter Toilet Urinal # Voids 2 - Labs CBC & Chem 7: 03/05/22 09:11 03/05/22 09:11 Labs: Abnormal Lab Results - Last 24 Hours (Table) 03/05/22 03/05/22 Range/Units 09:11 09:11 RBC 3.88 L (4.30-5.90) m/uL Hgb 12.9 L (13.0-17.5) gm/dL Hct 38.0 L (39.0-53.0) % Carbon Dioxide 19 L (22-30) mmol/L Calcium 7.9 L (8.4-10.2) mg/dL
[2022-03-06] MEDS: LATANOPROST 0.005% OPHTH DROPS 2.5 ML BTL LEFT EYE SCH (20:32)
[2022-03-06] MEDS: MORPHINE SULFATE 2 MG/ML SYRINGE IVP PRN (20:32)
[2022-03-07] MEDS: ONDANSETRON 4 MG/2 ML VIAL IVP PRN ×4 (01:03→19:43)
[2022-03-07] MEDS: SODIUM CHLORIDE 0.9% 1,000 ML IV SCH ×3 (01:06→12:48)
--- NOTE | 2022-03-07 09:01 | P.PN ---
Subjective Progress Note Date: 03/07/22 Principal diagnosis: Small bowel obstruction Patient complaining of some nausea this morning. He has hiccups. He did drink a lot of his breakfast. He is passing flatus. Says he may have had a small stool. No vomiting. Pain is minimally improved from yesterday ranks it 5 out of 10 Objective - Vital Signs Vital signs: Vital Signs Temp 99.4 F 03/07/22 04:00 Pulse 82 03/07/22 04:00 Resp 18 03/07/22 04:00 BP 157/82 03/07/22 04:00 Pulse Ox 95 03/07/22 04:00 FiO2 Intake & Output 03/06/22 03/07/22 03/07/22 19:59 06:59 18:59 Intake Total Balance Intake: Intake, IV Titration Amount Sodium Chloride 0.9% 1, 000 ml @ 130 mls/hr IV . Q7H42M [facility] Rx#:[id number] Oral Other: Voiding Method # Voids - Exam Abdomen: Soft, mild distention, mild tenderness, dressing and placed - Labs CBC & Chem 7: 03/05/22 09:11 03/05/22 09:11 Assessment and Plan (1) Small bowel obstruction Narrative/Plan: Patient with nausea today. Continue clear liquids. Recommended the patient to only do small sips of liquids for now. Ambulate. Current Visit: Yes Status: Acute Code(s): K56.609 - UNSP INTESTNL OBST, UNSP TO PARTIAL VERSUS COMPLETE OBST SNOMED Code(s): 819776279
[2022-03-07] MEDS: METOCLOPRAMIDE 5 MG/ML 2 ML VIAL IVP PRN ×2 (09:08→16:38)
[2022-03-07] MEDS: ENOXAPARIN 40 MG/0.4 ML SYRINGE SQ SCH (09:08)
[2022-03-07] MEDS: PANTOPRAZOLE 40 MG TABLET PO SCH (09:08)
[2022-03-07] MEDS: TIMOLOL 0.5% OPHTH DROPS 5 ML BTL LEFT EYE SCH ×2 (09:09→20:14)
[2022-03-07] MEDS: MORPHINE SULFATE 2 MG/ML SYRINGE IVP PRN ×2 (09:19→13:12)
--- NOTE | 2022-03-07 12:23 | P.PN ---
Subjective Progress Note Date: 03/07/22 Hospital course: Patient is a very pleasant 67-year-old male with a past medical history of umbilical hernia with mesh repair and appendectomy. He presented to the emergency department with a chief complaint of abdominal pain and distention accompanied by nausea and vomiting. He underwent full evaluation in the emergency department. CT abdomen and pelvis without contrast revealed dilation of small bowel predominantly to GEN him with small bowel cc an nondistention of the distal ileum and colon concerning for small bowel obstruction at the transition point. CBC, coags, and CMP completed showing no significant abnormalities. Patient was admitted under the services with consultation to general surgery. CT abdomen and pelvis with oral contrast for small bowel follow-through was then completed revealing distal small bowel obstruction mid to distal small bowel with transition zone suggested within the right lower quadrant. X-ray completed 03/04/22 revealing oral contrast has progressed into the colon, however: Remained collapsed with persistent dilated small bowel loops in the left side of the abdomen measuring up to 4.4 cm showing slight improve ment compared to CT however residual incomplete small bowel obstruction was not excluded at that time. Later that afternoon on 03/04/22 patient underwent evaluation by surgery team and it was decided for patient to undergo exploratory laparotomy to evaluate for adhesions. During exploratory laparotomy, patient was found to have a high-grade small bowel obstruction secondary to small bowel adhesions with small bowel volvulus resulting in lysis of adhesions with small bowel resection. Physical examination: Patient seen and fully evaluated at bedside this morning. Patient is postoperative day 3. He reports feeling nauseous this morning. He reports he ambulated most of the day yesterday and was passing flatus but reports he has not passed flatus since yesterday evening. He denies experiencing any bowel movements or episodes of vomiting and is tolerating clear liquids. Patient continues to report distention of abdomen and mild pain/discomfort. Upon examination abdomen remains taught distended. Patient does have normal active bowel sounds in all 4 quadrants. Vital signs reviewed and stable. General: Nontoxic, no distress and appears stated age. Derm: Skin warm and dry, normal coloration for ethnicity. Head: Atraumatic, normocephalic and symmetric. Eyes: EOMs intact, no lid lag, and anicteric sclera Mouth: no lip lesions, mucus membranes moist Cardiovascular: regular rate and rhythm with normal S1S2, no murmur, positive posterior tibial pulses bilaterally, and cap refill < 2 seconds. Lungs: Respirations even, regular, and unlabored on room air. Lungs CTA bilaterally, no rhonchi, no rales, no wheezing, and no accessory muscle usage. Abdominal. Taut distended, mild tenderness, bowel sounds present and normally active in all 4 quadrants. Abdominal binder in place. Ext: ROM intact. No gross muscle atrophy, no edema, no contractures Neuro: Speech clear, face symmetrical and CN II-XII grossly intact with no noted focal neuro deficits Psych: Alert and oriented to person, place, time, and situation. Appropriate and pleasant affect. Assessment and Plan of Care: Small bowel obstruction status post lysis of adhesions with small bowel resection -Gen. surgery following, took patient for exploratory laparotomy resulting in lysis of adhesions with small bowel resection on 03/04/22 -Continue clear liquid diet -Continue with IV fluid hydration -Symptomatic care and pain management with Zofran as needed for nausea/vomiting and morphine as needed for pain/discomfort. -GI prophylaxis with Protonix -Encourage ambulation Acute postoperative blood loss anemia -Currently Hemoglobin stable, we will continue to monitor with repeat a.m. labs. CODE STATUS: Full code DVT prophylaxis: Heparin Discussed with: Patient and RN Anticipated discharge date: Clinical course to determine Anticipated discharge place: Home A total of 35 minutes was spent on the care of this complex patient more than 50% of the time was spent in counseling and care coordination. I reviewed the documentation as provided by the NOA above, who is the original author of this note. I agree with the documented assessment and plan, with the following changes: none Objective - Vital Signs Vital signs: Vital Signs Temp 99.4 F 03/07/22 04:00 Pulse 82 03/07/22 04:00 Resp 18 03/07/22 04:00 BP 157/82 03/07/22 04:00 Pulse Ox 95 03/07/22 04:00 FiO2 Intake & Output 03/06/22 03/07/22 03/07/22 19:59 06:59 18:59 Intake Total Balance Intake: Intake, IV Titration Amount Sodium Chloride 0.9% 1, 000 ml @ 130 mls/hr IV . Q7H42M [facility] Rx#:[id number] Oral Other: Voiding Method # Voids - Labs CBC & Chem 7: 03/05/22 09:11 03/05/22 09:11
[2022-03-07] MEDS: LATANOPROST 0.005% OPHTH DROPS 2.5 ML BTL LEFT EYE SCH (20:14)
[2022-03-08] MEDS: METOCLOPRAMIDE 5 MG/ML 2 ML VIAL IVP PRN (00:04)
[2022-03-08] MEDS: SODIUM CHLORIDE 0.9% 1,000 ML IV SCH (00:05)
[2022-03-08] MEDS: TIMOLOL 0.5% OPHTH DROPS 5 ML BTL LEFT EYE SCH (08:17)
[2022-03-08] MEDS: ENOXAPARIN 40 MG/0.4 ML SYRINGE SQ SCH (08:18)
[2022-03-08] MEDS: PANTOPRAZOLE 40 MG TABLET PO SCH (08:18)
[2022-03-08 10:28] LABS: HCT 40.3 % (39.6-50.0); HGB 13.5 g/dL (13.0-17.0); MCH 33.2 pg (27.0-32.0); MCHC 33.5 g/dL (32.0-37.0); Mean Platelet Volume 8.7 fL (9.5-12.2); NRBC Per 100 WBC 0 /100 WBCS (0.0-0.0); Platelet Count 329 X 10*3/uL (140-440); RBC 4.07 X 10*6/uL (4.40-5.60); RDW 12.2 % (11.5-14.5); WBC 9.21 X 10*3/uL (4.50-10.00)
[2022-03-08 10:51] LABS: African American GFR (CKD) 102.8 (60.0-200.0); Albumin 3.6 g/dL (3.8-4.9); Albumin/Globulin Ratio 1.44 (1.60-3.17); Anion Gap 11.7 mmol/L (10.00-18.00); BUN/Creat Ratio 7.89 Ratio (12.00-20.00); Blood Urea Nitrogen 7.1 mg/dL (9.0-27.0); Calcium 8.8 mg/dL (8.7-10.3); Carbon Dioxide 23.3 mmol/L (20.0-27.5); Globulin 2.5 g/dL (1.6-3.3); Non-African American GFR(CKD) 88.7 (60.0-200.0); Potassium 3.4 mmol/L (3.5-5.5); Total Bilirubin 0.6 mg/dL (0.30-1.20); Total Protein 6.1 g/dL (6.2-8.2)
[2022-03-08] MEDS ORDERED: POTASSIUM CHLORIDE ER 20 MEQ TAB.ER PO STA (12:11)
--- NOTE | 2022-03-08 12:13 | P.PN ---
Subjective Progress Note Date: 03/08/22 CHIEF COMPLAINT: Small bowel obstruction HISTORY OF PRESENT ILLNESS: Patient is status post exploratory laparotomy, lysis of adhesions and small bowel resection for a high-grade small bowel obstruction secondary to small bowel adhesions and abdominal mesh with small bowel volvulus. Patient reports his pain is controlled. He denies any nausea or vomiting. Reports having a bowel movement. Low-grade temp 99.7 last night. Currently afebrile. WBC is 9.2 hgb 13.5 platelets 329 potassium is 3.4 Patient was seen and examined by Dr. casanova PHYSICAL EXAM: VITAL SIGNS: Reviewed. GENERAL: Well-developed in no acute distress. HEENT: No sclera icterus. Extraocular movements grossly intact. Moist buccal mucosa. Head is atraumatic, normocephalic. ABDOMEN: soft, incision site with some dried old blood noted. Otherwise clean dry and intact Abdominal binder in place. NEUROLOGIC: Alert and oriented. Cranial nerves II through XII grossly intact. ASSESSMENT: 1. High-grade small bowel obstruction secondary to small bowel adhesions and abdominal mesh with small bowel volvulus status post exploratory laparotomy, lysis of adhesions and small bowel resection 2. Hypokalemia PLAN: -Advance to full liquids -Patient can be discharged from surgical standpoint -Patient to continue a full liquid diet at home until seen by surgeon next week -Replace potassium -Continue pain medication as needed -Encourage patient to ambulate -Encourage patient to use incentive spirometer -GI prophylaxis Protonix and DVT prophylaxis Lovenox Physician Usability Engineer note has been reviewed by physician. Signing provider agrees with the documented findings, assessment, and plan of care. Objective - Vital Signs Vital signs: Vital Signs Temp 98.3 F 03/08/22 04:03 Pulse 73 03/08/22 04:03 Resp 16 03/08/22 04:03 BP 148/85 03/08/22 04:03 Pulse Ox 95 03/08/22 04:03 FiO2 Intake & Output 03/07/22 03/08/22 03/08/22 18:59 06:59 18:59 Intake Total 1200 1450 Balance 1200 1450 Intake: Intake, IV Titration 1200 800 Amount Sodium Chloride 0.9% 1, 800 000 ml @ 130 mls/hr IV . Q7H42M [facility] Rx#:[id number] Sodium Chloride 0.9% 100 1200 ml @ 0 mls/hr IV .STK-MED ONE with ceFAZolin 2,000 mg Rx#:[id number] Oral 650 Other: Voiding Method Toilet Toilet Toilet Urinal Urinal Urinal # Voids 1 # Bowel Movements 0 - Labs CBC & Chem 7: 03/08/22 07:00 03/08/22 07:00 Labs: Abnormal Lab Results - Last 24 Hours (Table) 03/08/22 03/08/22 Range/Units 07:00 07:00 RBC 4.07 L (4.40-5.60) X 10*6/uL MCV 99.0 H (80.0-97.0) fL MCH 33.2 H (27.0-32.0) pg MPV 8.7 L (9.5-12.2) fL Potassium 3.4 L (3.5-5.5) mmol/L BUN 7.1 L (9.0-27.0) mg/dL BUN/Creatinine Ratio 7.89 L (12.00-20.00) Ratio Total Protein 6.1 L (6.2-8.2) g/dL Albumin 3.6 L (3.8-4.9) g/dL Albumin/Globulin Ratio 1.44 L (1.60-3.17) g/dL
[2022-03-08 12:18] VITALS: BP 154/80; PULSE 83; RESP 20; TEMP 98.6
--- NOTE | 2022-03-08 13:09 | P.PN ---
Subjective Progress Note Date: 03/08/22 Hospital course: Patient is a very pleasant 67-year-old male with a past medical history of umbilical hernia with mesh repair and appendectomy. He presented to the emergency department with a chief complaint of abdominal pain and distention accompanied by nausea and vomiting. He underwent full evaluation in the emergency department. CT abdomen and pelvis without contrast revealed dilation of small bowel predominantly to GEN him with small bowel cc an nondistention of the distal ileum and colon concerning for small bowel obstruction at the transition point. CBC, coags, and CMP completed showing no significant abnormalities. Patient was admitted under the services with consultation to general surgery. CT abdomen and pelvis with oral contrast for small bowel follow-through was then completed revealing distal small bowel obstruction mid to distal small bowel with transition zone suggested within the right lower quadrant. X-ray completed 03/04/22 revealing oral contrast has progressed into the colon, however: Remained collapsed with persistent dilated small bowel loops in the left side of the abdomen measuring up to 4.4 cm showing slight improve ment compared to CT however residual incomplete small bowel obstruction was not excluded at that time. Later that afternoon on 03/04/22 patient underwent evaluation by surgery team and it was decided for patient to undergo exploratory laparotomy to evaluate for adhesions. During exploratory laparotomy, patient was found to have a high-grade small bowel obstruction secondary to small bowel adhesions with small bowel volvulus resulting in lysis of adhesions with small bowel resection. Physical examination: Patient seen and fully evaluated at bedside this morning around 8:30 AM. Patient is postoperative day 4. He reports feeling slightly better this morning denies any further episodes of nausea and continues to deny having any episodes of vomiting. Patient reports he believes he may have had a bowel movement, but states he wasn't sure if he was passing gas or had a very small amount of diarrhea. Abdomen remains taught and distended and patient currently reading diffuse abdominal pain as a 4 out of 10. He remains on clear liquid diet and is tolerating well. Patient has been ambulating daily. Vital signs reviewed and stable. General: Nontoxic, no distress and appears stated age. Derm: Skin warm and dry, normal coloration for ethnicity. Head: Atraumatic, normocephalic and symmetric. Eyes: EOMs intact, no lid lag, and anicteric sclera Mouth: no lip lesions, mucus membranes moist Cardiovascular: regular rate and rhythm with normal S1S2, no murmur, positive posterior tibial pulses bilaterally, and cap refill < 2 seconds. Lungs: Respirations even, regular, and unlabored on room air. Lungs CTA bilaterally, no rhonchi, no rales, no wheezing, and no accessory muscle usage. Abdominal. Taut distended, mild tenderness, bowel sounds present and normally active in all 4 quadrants. Abdominal binder in place. Ext: ROM intact. No gross muscle atrophy, no edema, no contractures Neuro: Speech clear, face symmetrical and CN II-XII grossly intact with no noted focal neuro deficits Psych: Alert and oriented to person, place, time, and situation. Appropriate and pleasant affect. Assessment and Plan of Care: Small bowel obstruction status post lysis of adhesions with small bowel res ection -Gen. surgery following, took patient for exploratory laparotomy resulting in lysis of adhesions with small bowel resection on 03/04/22 -Continue clear liquid diet -Continue with IV fluid hydration -Symptomatic care and pain management with Zofran as needed for nausea/vomiting and morphine as needed for pain/discomfort. -GI prophylaxis with Protonix -Encourage ambulation Acute postoperative blood loss anemia -Currently Hemoglobin stable, we will continue to monitor with repeat a.m. labs. CODE STATUS: Full code DVT prophylaxis: Heparin Discussed with: Patient and RN Anticipated discharge date: Clinical course to determine Anticipated discharge place: Home A total of 33 minutes was spent on the care of this complex patient more than 50% of the time was spent in counseling and care coordination. Objective - Vital Signs Vital signs: Vital Signs Temp 98.6 F 03/08/22 12:17 Pulse 83 03/08/22 12:17 Resp 20 03/08/22 12:17 BP 154/80 03/08/22 12:17 Pulse Ox 95 03/08/22 12:17 FiO2 Intake & Output 03/07/22 03/08/22 03/08/22 18:59 06:59 18:59 Intake Total 1200 1450 Balance 1200 1450 Intake: Intake, IV Titration 1200 800 Amount Sodium Chloride 0.9% 1, 800 000 ml @ 130 mls/hr IV . Q7H42M [facility] Rx#:[id number] Sodium Chloride 0.9% 100 1200 ml @ 0 mls/hr IV .STK-MED ONE with ceFAZolin 2,000 mg Rx#:[id number] Oral 650 Other: Voiding Method Toilet Toilet Toilet Urinal Urinal Urinal # Voids 1 # Bowel Movements 0 - Labs CBC & Chem 7: 03/08/22 07:00 03/08/22 07:00 Labs: Abnormal Lab Results - Last 24 Hours (Table) 03/08/22 03/08/22 Range/Units 07:00 07:00 RBC 4.07 L (4.40-5.60) X 10*6/uL MCV 99.0 H (80.0-97.0) fL MCH 33.2 H (27.0-32.0) pg MPV 8.7 L (9.5-12.2) fL Potassium 3.4 L (3.5-5.5) mmol/L BUN 7.1 L (9.0-27.0) mg/dL BUN/Creatinine Ratio 7.89 L (12.00-20.00) Ratio Total Protein 6.1 L (6.2-8.2) g/dL Albumin 3.6 L (3.8-4.9) g/dL Albumin/Globulin Ratio 1.44 L (1.60-3.17) g/dL
--- NOTE | 2022-03-08 14:19 | P.DS ---
Providers Date of admission: 03/02/22 21:10 Expected date of discharge: 03/08/22 Attending physician: Markos Garza MD Consults: 03/02/22 21:10 Consult Physician Routine Consulting Provider: Carlos Hernandez Consult Reason/Comments: sbo Do you want consulting provider notified?: Yes Primary care physician: Denzel Cesar [place] Hospital Course: Discharge Diagnosis: Small bowel obstruction status post lysis of adhesions with small bowel resection on 03/31/22. Acute postoperative blood loss anemia, hemoglobin stable at 13.5 on day of d ischarge. Hypokalemia, replaced. Hospital Course: Patient is a very pleasant 67-year-old male with a past medical history of umbilical hernia with mesh repair and appendectomy. He presented to the emergency department with a chief complaint of abdominal pain and distention accompanied by nausea and vomiting. He underwent full evaluation in the emerge ncy department. CT abdomen and pelvis without contrast revealed dilation of small bowel predominantly to GEN him with small bowel cc an nondistention of the distal ileum and colon concerning for small bowel obstruction at the transition point. CBC, coags, and CMP completed showing no significant abnormalities. Patient was admitted under the services with consultation to general surgery. CT abdomen and pelvis with oral contrast for small bowel follow-through was then completed revealing distal small bowel obstruction mid to distal small bowel with transition zone suggested within the right lower quadrant. X-ray completed 03/04/22 revealing oral contrast has progressed into the colon, however: Remained collapsed with persistent dilated small bowel loops in the left side of the abdomen measuring up to 4.4 cm showing slight improvement compared to CT however residual incomplete small bowel obstruction was not excluded at that time. Later that afternoon on 03/04/22 patient underwent evaluation by surgery team and it was decided for patient to undergo exploratory laparotomy to evaluate for adhesions. During exploratory laparotomy, patient was found to have a high- grade small bowel obstruction secondary to small bowel adhesions with small bowel volvulus resulting in lysis of adhesions with small bowel resection. Patient has been tolerating clear liquid diet and this has been advanced to full liquid diet at this time. General surgery recommending patient continue with a full liquid diet until follow-up in the office in one week. Patient is medically stable at this time patient being discharged home on full liquid diet and instructed he will need to follow up outpatient with his PCP in 1-2 days and with general surgery in 1 week. Physical examination: Please refer to progress note written earlier today to review a full detailed physical examination. A total of 31 minutes of time were spent preparing this complex discharge summary. Pt was discharged on 03/08/22 at 2:11 PM. Patient Condition at Discharge: Stable Plan - Discharge Summary New Discharge Prescriptions: New Ondansetron Odt [Zofran ODT] 4 mg PO Q8HR PRN #30 tab PRN Reason: Nausea HYDROcodone/APAP 5-325MG [[place] 5-325] 1 tab PO Q6HR PRN 3 Days #12 tab PRN Reason: Pain Pantoprazole [Protonix] 40 mg PO AC-BRKFST 30 Days #30 tab Continue Timolol 0.5% Ophth Soln [Timoptic 0.5% Ophth Soln] 1 drop LEFT EYE BID Latanoprost Ophth [Xalatan 0.005%] 1 drop LEFT EYE HS Aspirin [Adult Low Dose Aspirin EC] 81 mg PO DAILY Discharge Medication List Aspirin [Adult Low Dose Aspirin EC] 81 mg PO DAILY 03/30/16 [History] Latanoprost Ophth [Xalatan 0.005%] 1 drop LEFT EYE HS 03/30/16 [History] Timolol 0.5% Ophth Soln [Timoptic 0.5% Ophth Soln] 1 drop LEFT EYE BID 03/30/16 [History] HYDROcodone/APAP 5-325MG [[place] 5-325] 1 tab PO Q6HR PRN 3 Days #12 tab 03/05/22 [Rx] Ondansetron Odt [Zofran ODT] 4 mg PO Q8HR PRN #30 tab 03/08/22 [Rx] Pantoprazole [Protonix] 40 mg PO AC-BRKFST 30 Days #30 tab 03/08/22 [Rx] Follow up Appointment(s)/Referral(s): Denzel Jones MD [Primary Care Provider] - 1-2 days Carlos Hernandez MD [STAFF PHYSICIAN] - 1 Week Activity/Diet/Wound Care/Special Instructions: Activity: Light activity, Take breaks as needed. Encourage ambulation but nothing further until you are reevaluated at your follow-up appointment by your surgeon. No lifting over 10 pounds Shower daily, however no soaking or tub baths for 2 weeks. Diet: Continue a full liquid diet only until your follow-up appointment with neurosurgeon, Dr. Hernandez in one week. Special Instructions: No driving while taking [place]. You will need to follow up outpatient with your surgeon, Dr. Hernandez in one week. Thank you for allowing us to participate in your care, it was truly a pleasure having you for our patient!!! Discharge Disposition: HOME SELF-CARE
== END 2022-03-08 16:48 | disposition home or self-care (01) | DRG 330 ==
LOC: EC 18:52 → 5NMEDONC 21:10
PROVIDERS: ADMIT Internal Medicine; ATTEND Internal Medicine
PROC: 0DN80ZZ Release Small Intestine, Open Approach (ICD-10-PCS; principal; 2022-03-04 10:20)
PROC: 0DB80ZZ Excision of Small Intestine, Open Approach (ICD-10-PCS; principal; 2022-03-04 10:20)
DX: K56.52 Intestinal adhesions [bands] with complete obstruction (principal); D62 Acute posthemorrhagic anemia; E87.6 Hypokalemia; K56.2 Volvulus; Z96.642 Presence of left artificial hip joint; Z79.82 Long term (current) use of aspirin; Z79.899 Other long term (current) drug therapy
CPT/HCPCS: 36415; 74019; 74176; 80048; 80053; 83690; 83735; 85025; 85027; 85610; 85730; 86850; 86900; 86901; 88307; 93005; 99284